=== PATIENT | male | born 1950 | race Caucasian/White ===

== ENCOUNTER → 2017-11-30 | Outpatient (CLI) | payer MEDICARE | LOC: LAB 09:31 | PROVIDERS: ATTEND Family Medicine | DX: R80.9 Proteinuria, unspecified (principal) | CPT/HCPCS: 36415; 82575; 84156 ==

== ENCOUNTER → 2018-11-25 | Outpatient (CLI) | payer MEDICARE ==
[~2018-11-25] MED LIST: IOPAMIDOL 76% 100 ML INFUS BTL 100 ML ONE
--- NOTE | 2018-11-25 10:56 | RADIOLOGY IMAGING REPORT ---
FACILITY: [facility] PATIENT NAME: Giuseppe Ríos : 1950 MR: [id number] V: [id number] EXAM DATE: ORDERING PHYSICIAN: TOMMY QUESADA TECHNOLOGIST: Location: [facility] Patient: Giuseppe Ríos : 1950 Visit/Account:[id number] Date of Sevice: 11/25/2018 CT CHEST ABDOMEN PELVIS W & W/O HISTORY: Gross hematuria, ureteral calculus, partial right nephrectomy ADDITIONAL HISTORY: None. TECHNIQUE: Pre and post administration of IV contrast axial images acquired through the chest abdome n and pelvis during the portal venous phase. Coronal and sagittal reformatting was also performed.Do se Lowering Technique One of the following dose optimization techniques was utilized in the performance of this exam: Autom ated exposure control; adjustment of the mA and/or kV according to the patient's size; or use of an i terative reconstruction technique. Specific details can be referenced in the facility's radiology C T exam operational policy. CONTRAST: 75 mL Isovue-370 COMPARISON: CT abdomen pelvis May 28, 2017 FINDINGS: CHEST: Lungs/Pleura: 4 mm calcified granuloma posterior aspect the left upper lobe, image 35 of series 3. 3 mm calcified granuloma posterior aspect left lower lobe best seen on image 59 6 mm calcified granuloma inferior aspect of the left lower lobe best seen image 95 small amount scar ring anterior aspect right middle lobe appears relatively unchanged when compared the prior CT Mediastinum/lymph nodes: Thyroid gland is enlarged with substernal extension and appears heterogeneo us. Heart/vessels: Mild coronary artery calcifications Bones/soft tissues: Extensive spondylotic changes of the thoracolumbar spine ABDOMEN AND PELVIS: Hepatobiliary: Tiny hypodensity right lobe of the liver appears stable likely representing a cyst al though is too small to characterize Spleen: Negative. Pancreas: Head of the pancreas appears more prominent when compared the prior study and mildly heter ogeneous Adrenals: There is nodular thickening of both adrenal glands although appears similar to the prior s tudy Kidneys ureters and bladder : There is a 2 mm nonobstructing calculus lower pole calyx of the right k idney. There Is a cortical defect mid right kidney appears similar to the prior study likely related to prior surgery. Bilateral renal cysts are again seen. There is a 1.3 cm new cortical hypodensity lateral aspect uppe r pole the right kidney although CT Hounsfield units suggest this is a simple cyst. There are severa l cortical hyperdensities projecting from the lateral aspect of the right kidney which may represent proteinaceous or hemorrhagic cysts although are too small to characterize. Some appear subtly increa sed in size There is severe bladder wall thickening along the floor the bladder which has increased when compared to the prior study. Moderate bladder wall thickening is noted elsewhere. There are numerous bladde r calculi present. Genitalia: Prostate gland is markedly enlarged and impinges upon the floor the bladder GI: There Is a moderate amount of fecal material seen throughout colon which can be seen with const ipation. Colon appears very redundant. Diverticulosis throughout the colon although no CT evidence of acute diverticulitis Vessels/spaces/nodes: Mild vascular calcifications, shotty retroperitoneal lymph nodes Bones/soft tissues: Extensive spondylotic changes of the thoracolumbar spine. Small umbilical herni a containing fat Additional findings: None pertinent. IMPRESSION: Calcite granulomas within the lungs Thyroid gland is enlarged, heterogeneous with substernal extension. Thyroid ultrasound may be of luis miguel ue Head the pancreas appears more prominent when compared the prior study and is mildly heterogeneous. This could be further evaluated with ultrasound or MR depending upon the degree of clinical concern 2 mm nonobstructing calculus lower pole calyx the right kidney Bilateral enal cystsThere are several small subcentimeter cortical hyperdensities projecting from th e lateral aspect right kidney which may represent proteinaceous or hemorrhagic cyst although are too small to characterize. Some appear subtly increased in size. Bladder wall is severely thickened along the floor and moderately thickened elsewhere. This appears to be increased when compared the prior study. Multiple bladder calculi are present Prostate gland markedly enlarged impinging upon the floor the bladder Moderate amount of fecal material throughout the redundant colon which can seen with constipation. Diverticulosis of the colon although no CT evidence of acute diverticulitis Report Dictated By: Senait Barragan MD at 11/25/2018 10:27 AM Report E-Signed By: Senait Barragan MD at 11/25/2018 10:52 AM WSN:[id number]
== END ==
LOC: CT 03:27
PROVIDERS: ATTEND Nurse Practitioner Family
DX: J98.4 Other disorders of lung (principal); N28.1 Cyst of kidney, acquired; K57.30 Diverticulosis of large intestine without perforation or abscess without bleeding; N20.1 Calculus of ureter; R31.0 Gross hematuria; D38.1 Neoplasm of uncertain behavior of trachea, bronchus and lung
CPT/HCPCS: 71270; 74178; Q9967

== ENCOUNTER → 2018-11-28 | Outpatient (CLI) | payer MEDICARE ==
[~2018-11-28] MED LIST changes: +AMLO-127 PO; +ASPI-1471 PO; -IOPAMIDOL 76% 100 ML INFUS BTL 100 ML ONE; +LOSA-54 PO; +METF-450 PO; +MULT1CAP59 PO; +PIOG15TA67 PO
== END ==
LOC: LAB 09:31
PROVIDERS: ATTEND Urology
DX: N21.0 Calculus in bladder (principal)
CPT/HCPCS: 87088

== ENCOUNTER → 2018-12-03 | Outpatient (CLI) | payer MEDICARE ==
--- NOTE | 2018-12-03 14:08 | EKG ---
[place] [facility] [place] NAME: ARI SAHA : [id number] MR: [id number] V: [id number] EXAM DATE: ORDERING PHYSICIAN: LAUREN BAIRES TECHNOLOGIST: GLENNA Lopez Reason : PRE-OP Blood Pressure : / mmHG Vent. Rate : 077 BPM Atrial Rate : 077 BPM P-R Int : 230 ms QRS Dur : 118 ms QT Int : 416 ms P-R-T Axes : 093 -55 057 degrees QTc Int : 470 ms Sinus rhythm with 1st degree AV block with occasional premature ventricular complexes Nonspecific interventricular conduction delay Abnormal ECG No previous ECGs available Confirmed by TATIANNA VARGAS ([id number]) on 12/03/2018 3:10:37 PM Referred By: LAUREN BAIRES Confirmed By:TATIANNA VARGAS
== END ==
LOC: LAB 13:45
PROVIDERS: ATTEND Urology
DX: I44.0 Atrioventricular block, first degree (principal); I49.3 Ventricular premature depolarization; R94.31 Abnormal electrocardiogram [ECG] [EKG]
CPT/HCPCS: 93005

== ENCOUNTER 2018-12-16 02:10 | Day surgery (SDC) | payer MEDICARE ==
[2018-12-03 14:07] LABS: PLATELET COUNT, AUTOMATED 195 K/uL (150-450)
[~2018-12-16] VITALS: Ht 185.4 cm; Wt 129.7 kg
[2018-12-16] VITALS (7 sets, daily range): BP systolic 120–157; BP diastolic 67–95
[2018-12-16] MEDS ORDERED: LEVOFLOXACIN/D5W*500 MG/100 ML 100 ML IVPB ONE (06:15)
[2018-12-16] MEDS ORDERED: LIDOCAINE MPF 1% 5 ML VIAL ONE (06:41)
[2018-12-16] MEDS ORDERED: ONDANSETRON 4 MG/2 ML VIAL ONE (06:41)
[2018-12-16] MEDS ORDERED: DEXAMETHASONE SOD 4 MG/ML VIAL ONE (06:41)
[2018-12-16] MEDS ORDERED: PROPOFOL EMUL(*) 10MG/ML 20 ML 40 ML ONE (06:41)
[2018-12-16] MEDS ORDERED: METOCLOPRAMIDE 10 MG/2 ML SDV ONE (06:41)
[2018-12-16] MEDS ORDERED: fentaNYL CITR 100 MCG/2 ML AMP ONE (06:44)
[2018-12-16] MEDS ORDERED: NORMOSOL R SOLN(*) 1000 ML BAG 1,000 ML IV PRN (07:40)
[2018-12-16] MEDS ORDERED: LIDOCAINE/SOD BICARB 8.4% SYR ID ONE (07:40)
[2018-12-16] MEDS ORDERED: FAMOTIDINE 20 MG TAB PO ONE (07:40)
[2018-12-16] MEDS ORDERED: MIDAZOLAM 2 MG/2 ML VIAL IVP PRN (07:40)
[2018-12-16] MEDS ORDERED: BELLADONNA ALK/OPIUM 60MG SUPP PR ONE (08:01)
[2018-12-16] MEDS ORDERED: ePHEDrine 25 MG/5 ML DISP.SYR IVP ONE (08:06)
--- NOTE | 2018-12-16 09:50 | Urology Discharge Summary ---
Discharge Summary Departure Weight (Pounds): 286 Condition: Improved Discharge: Home Home Health RN Follow Up For: Cathether Care Time Spent: < 30 min Discharge Instructions Home Meds Reported Medications Multivitamin (MULTIVITAMINS) Unknown Strength Capsule, PO, CAPSULE 11/28/18 Aspirin (ASPIR 81) 81 Mg Tablet.dr, 81 MG PO QDAY, TAB 11/28/18 Amlodipine Besylate (AMLODIPINE BESYLATE) 10 Mg Tablet, 1 TAB PO QDAY, TAB 11/28/18 Pioglitazone Hcl (PIOGLITAZONE HCL) 15 Mg Tablet, 15 MG PO QDAY 11/28/18 Losartan/Hydrochlorothiazide (LOSARTAN-HCTZ 100-25 MG TAB) 1 Each Tablet, 1 EACH PO QDAY 11/28/18 Metformin Hcl (METFORMIN HCL) 500 Mg Tablet, 2 TAB PO BID, TAB 11/28/18 Diet: Regular Special Instructions: Empty catheter bag as necessary. Expect to see blood in urine off and on in the catheter bag and tubing. Try to keep the catheter tubing supported so will not pull Please call my office to schedule a follow-up visit for Sunday or Call me for any problems or concerns [phone] Venous Thromboembolism Antithrombotics Is Pt On Any Antithrombotics?: No LAUREN BAIRES MD Dec 16, 2018 09:50
--- NOTE | 2018-12-16 10:36 | OPERATIVE REPORT 1 ---
EVENT DATE: December 16, 2018 SURGEON: Alex Maciel MD ANESTHESIOLOGIST: Pancho Love MD ANESTHESIA: LMA general. CONVENTION PLANNER: None. PREOPERATIVE DIAGNOSES 1. Prostatic enlargement. 2. Bladder wall thickening. 3. Bladder calculi. POSTOPERATIVE DIAGNOSES 1. Prostatic enlargement. 2. Bladder wall thickening. 3. Bladder calculi. PROCEDURES PERFORMED 1. Cystoscopy with laser litholapaxy. 2. Transurethral resection of bladder wall for biopsy. DESCRIPTION OF PROCEDURE The patient was brought to the operating room and after the adequate induction of general anesthesia he was placed in the relaxed dorsal lithotomy position. Genitalia were scrubbed, prepped and draped in a sterile fashion and the bladder was examined with the 24-Slovak resectoscope sheath using the visual obturator. The prostatic urethra, as suggested by preoperative imaging, was very elongated and somewhat irregular within the bladder. Initial examination demonstrated no obvious papillary or sessile lesions but edematous mucosa was noted at the bladder base. The ureteral orifices were identified. Using the laser bridge and the 365 Micron Fiber, the numerous stones within the bladder, which were canary yellow in appearance, were sequentially fragmented and evacuated using the Schedulize evacuator. Once all the stone material had been evacuated and some sent for stone analysis, the laser bridge was exchanged for the resectoscope element and several patient portal representative areas of bladder mucosa were sampled using the resectoscope. Upon completion, the sites of biopsy were fulgurated and a 22- Slovak, 30 cc, three-way Barr catheter passed into the bladder and connected to continuous irrigation. He was then aroused from anesthesia and transported to PACU in stable condition with continuous irrigation. ESTIMATED BLOOD LOSS 30 cc's. MTDD
[2018-12-18] MEDS ORDERED: NITR-105 PO (10:16)
== END 2018-12-16 10:35 | disposition home or self-care (01) ==
LOC: OR 02:10
PROVIDERS: ATTEND Urology
DX: N21.0 Calculus in bladder (principal); N40.0 Benign prostatic hyperplasia without lower urinary tract symptoms; I10 Essential (primary) hypertension
CPT/HCPCS: 36416; 52224; 52317; 82948; 88300; 88305; 94667; A4346; A9270; J1100; J1956; J2001; J2405; J2704; J2765; J3010; 36415; 85025

== ENCOUNTER → 2019-01-15 | Outpatient (CLI) | payer MEDICARE ==
[~2019-01-15] MED LIST changes: +NITR-105 PO
== END ==
LOC: LAB 13:11
PROVIDERS: ATTEND Urology
DX: R31.9 Hematuria, unspecified (principal)
CPT/HCPCS: 81001; 87088